=== PATIENT | female | born 1975 | race Two or more races ===

== ENCOUNTER 2023-10-26 17:59 | Emergency (ER) | payer OTHER ==
[~2023-10-26] VITALS: Ht 167.6 cm; Wt 88.9 kg
[2023-10-26] MEDS ORDERED: TERBINAFINE HC250 MG (19:27)
[2023-10-26] MEDS ORDERED: TRAMADOL HCL 50 MG TABLET PO ONE (19:45)
[2023-10-26 19:52] LABS: HEMATOCRIT 40.2 % (36.0-45.00); HEMOGLOBIN 13.8 g/dL (12.0-15.00); MEAN CELL VOLUME 87.9 fL (80.00-100.00); MEAN CORPUSCULAR HEMOGLOBIN 30.2 pg (27.00-32.0); MEAN CORPUSCULAR HGB CONC 34.3 g/dl (32.0-36.0); PLATELET COUNT 305 K/uL (150-450); RED BLOOD COUNT 4.57 M/uL (4.00-6.00); RED CELL DISTRIBUTION WIDTH 13.2 % (11.5-14.5)
[2023-10-26] MEDS ORDERED: MORPHINE SULFATE 2 MG/ML CARTRIDGE IV ONE (20:00)
[2023-10-26 20:13] LABS: CALCIUM 9.6 mg/dL (8.5-10.1); CREATININE SERUM 0.69 mg/dL (0.55-1.02); GFR 90.05
[2023-10-26 20:26] LABS: POTASSIUM 2.86 mEq/L (3.5-5.1)
[2023-10-26] MEDS ORDERED: POTASSIUM CHLORIDE IN 0.9%NACL 40 MEQ/1,000 ML PIGGYBAG IV ONE (20:45)
[2023-10-26] MEDS ORDERED: POTASSIUM CHLORIDE 10 MEQ CAPSULE PO STA (21:16)
[2023-10-26] MEDS ORDERED: POTASSIUM CHLORIDE/NACL 0.9% 20 MEQ/1,000 ML PIGGYBAG IV ONE (22:00)
== END 2023-10-27 00:06 | disposition home or self-care (01) ==
LOC: ER 17:59
PROVIDERS: General Practice
DX: R10.9 Unspecified abdominal pain (principal); I10 Essential (primary) hypertension